=== PATIENT | female | born 1970 | race Caucasian/White ===

== ENCOUNTER 2018-04-09 20:34 | Inpatient (IN) | payer OTHER ==
[2018-04-09 22:32] LABS: ABNORMAL IP MESSAGE 1; HEMATOCRIT 19.6 % (37.0-47.0); MEAN CORPUSCULAR HEMOGLOBIN 17.4 pg (29.0-33.0); MEAN CORPUSCULAR HGB CONC 27.6 g/dl (32.0-37.0); MEAN PLATELET VOLUME 9.7 fl (7.4-10.4); PLATELET COUNT 367 10^3/UL (140-415); RED BLOOD COUNT 3.11 10^6/ul (4.20-5.40); RED CELL DISTRIBUTION WIDTH 19.7 % (11.5-14.5)
[2018-04-09 22:45] LABS: POSITIVE DIFF @See below
[2018-04-09 22:46] LABS: ADD MAN DIFF? YES; HEMOGLOBIN 5.4 g/dl (12.0-16.0)
[2018-04-09 22:47] LABS: INR 0.94; PROTIME 12.7 Sec (11.9-14.9)
[2018-04-09 22:48] LABS: PARTIAL THROMBOPLASTIN TIME 30.9 Sec (23.0-35.0)
[2018-04-09 22:51] LABS: ANION GAP 15 (5-13); BLOOD UREA NITROGEN 16 mg/dl (7-20); CALCIUM 9.2 mg/dl (8.4-10.2); CARBON DIOXIDE 21 mmol/L (21-31); CHLORIDE 103 mmol/L (97-110); CREATININE 0.83 mg/dl (0.44-1.00); Estimated GFR > 60 mL/min (>60); GLUCOSE 100 mg/dl (70-220); POTASSIUM 3.7 mmol/L (3.5-5.1); SODIUM 139 mmol/L (135-144)
[2018-04-09] MEDS ORDERED: ONDANSETRON 4 MG INJ IV ×2 (23:00)
[2018-04-09] MEDS ORDERED: NACL 0.9% 3 ML SYG IV (23:00)
[2018-04-09] MEDS ORDERED: ACETAMINOPHEN 325 MG TAB PO (23:00)
[2018-04-09] MEDS ORDERED: morphine 2 MG INJ IV (23:00)
[2018-04-09 23:03] LABS: ANISOCYTOSIS 3+ (0-0); BASOPHIL #M 0.1 10^3/ul (0.0-0.0); BASOPHILS % (M) 1 % (0-2); EOSINOPHILS % (M) 1 % (0-7); HYPOCHROMASIA 3+ (0-0); LYMPHOCYTES #M 2.7 10^3/ul (0.8-2.9); LYMPHOCYTES % (M) 27 % (15-51); MICROCYTOSIS 3+ (0-0); MONOCYTE #M 0.4 10^3/ul (0.3-0.9); MONOCYTES % (M) 4 % (0-11); OVALOCYTES 1+ (0-0); PLATELET ESTIMATE NORMAL; POIKILOCYTOSIS 2+ (0-0); POLYCHROMASIA 1+ (0-0); SEGMENTED NEUTROPHILS (M) % 67 % (39-77); SMUDGE%M 15 % (0-0); TEAR DROP CELLS 1+ (0-0)
[2018-04-09] MEDS: SOD CHLORIDE 0.9% 0 ML IV (23:08)
[2018-04-09 23:36] LABS: IMMEDIATE SPIN CROSSMATCH 1 2
[2018-04-10 08:24] LABS: ADD MAN DIFF? NO
[2018-04-10 08:35] LABS: WHITE BLOOD COUNT 6.2 10^3/ul (4.8-10.8)
[2018-04-10 08:35] LABS: ABNORMAL IP MESSAGE 1; BASOPHIL # 0.1 10^3/ul (0.0-0.1); BASOPHILS % 1.3 % (0.0-2.0); EOSINOPHILS # 0.1 10^3/ul (0.0-0.5); EOSINOPHILS % 1.9 % (0.0-7.0); HEMATOCRIT 27.7 % (37.0-47.0); HEMOGLOBIN 8.4 g/dl (12.0-16.0); LYMPHOCYTES # 1.7 10^3/ul (0.8-2.9); MEAN CORPUSCULAR HEMOGLOBIN 21.1 pg (29.0-33.0); MEAN CORPUSCULAR HGB CONC 30.3 g/dl (32.0-37.0); MEAN CORPUSCULAR VOLUME 69.6 fl (82.0-101.0); MONOCYTE # 0.4 10^3/ul (0.3-0.9); MONOCYTES % 6.1 % (0.0-11.0); NEUTROPHIL # 3.9 10^3/ul (1.6-7.5); NEUTROPHILS % 62.4 % (39.0-77.0); PLATELET COUNT 314 10^3/UL (140-415); RED BLOOD COUNT 3.98 10^6/ul (4.20-5.40); RED CELL DISTRIBUTION WIDTH 25.8 % (11.5-14.5)
[2018-04-10 08:36] LABS: POSITIVE DIFF @See below
[2018-04-10 08:53] LABS: ALANINE AMINOTRANSFERASE 20 IU/L (13-69); ALBUMIN 4.3 g/dl (3.3-4.9); ALBUMIN/GLOBULIN RATIO 1.13; ALKALINE PHOSPHATASE 52 IU/L (42-121); ANION GAP 15 (5-13); ASPARTATE AMINO TRANSFERASE 23 IU/L (15-46); BILIRUBIN,INDIRECT 0.4 mg/dl (0-1.1); BILIRUBIN,TOTAL 0.4 mg/dl (0.2-1.3); BLOOD UREA NITROGEN 10 mg/dl (7-20); CALCIUM 8.8 mg/dl (8.4-10.2); CARBON DIOXIDE 24 mmol/L (21-31); CHLORIDE 103 mmol/L (97-110); Estimated GFR > 60 mL/min (>60); GLUCOSE 83 mg/dl (70-220); POTASSIUM 3.6 mmol/L (3.5-5.1); SODIUM 142 mmol/L (135-144); TOTAL PROTEIN 8.1 g/dl (6.1-8.1)
[2018-04-10 08:54] LABS: HEMOGLOBIN A1C 5.6 % (0-5.9)
[2018-04-10] MEDS ORDERED: BISACODYL (EC) 5 MG TAB PO (14:00)
[2018-04-10] MEDS: DOCUSATE SODIUM 100 MG CAP PO ×2 (14:24→20:40)
[2018-04-10] MEDS: FERROUS SULFATE (EC) 325 MG TAB PO (20:40)
[2018-04-11 05:39] LABS: ADD MAN DIFF? NO
[2018-04-11 05:45] LABS: WHITE BLOOD COUNT 7.6 10^3/ul (4.8-10.8)
[2018-04-11 05:45] LABS: ABNORMAL IP MESSAGE 1; BASOPHIL # 0.1 10^3/ul (0.0-0.1); BASOPHILS % 1.1 % (0.0-2.0); EOSINOPHILS # 0.2 10^3/ul (0.0-0.5); HEMOGLOBIN 9.1 g/dl (12.0-16.0); LYMPHOCYTES # 2.7 10^3/ul (0.8-2.9); LYMPHOCYTES % 36.3 % (15.0-51.0); MEAN CORPUSCULAR HGB CONC 30.3 g/dl (32.0-37.0); MEAN CORPUSCULAR VOLUME 69.1 fl (82.0-101.0); MONOCYTE # 0.5 10^3/ul (0.3-0.9); MONOCYTES % 6.2 % (0.0-11.0); NEUTROPHILS % 53.1 % (39.0-77.0); PLATELET COUNT 322 10^3/UL (140-415); RED BLOOD COUNT 4.34 10^6/ul (4.20-5.40); RED CELL DISTRIBUTION WIDTH 25.5 % (11.5-14.5)
[2018-04-11 06:00] LABS: POSITIVE DIFF @See below
[2018-04-11 06:15] LABS: ANION GAP 17 (5-13); BLOOD UREA NITROGEN 10 mg/dl (7-20); CALCIUM 9.3 mg/dl (8.4-10.2); CARBON DIOXIDE 24 mmol/L (21-31); CHLORIDE 100 mmol/L (97-110); CREATININE 0.89 mg/dl (0.44-1.00); Estimated GFR > 60 mL/min (>60); GLUCOSE 87 mg/dl (70-220); POTASSIUM 3.8 mmol/L (3.5-5.1); SODIUM 141 mmol/L (135-144)
[2018-04-11 06:23] LABS: FREE T4 (FREE THYROXINE) 0.16 ng/dl (0.64-1.79)
[2018-04-11 06:25] LABS: FREE T3 0.92 pg/ml (2.77-5.27)
[2018-04-11] MEDS: DOCUSATE SODIUM 100 MG CAP PO ×2 (09:00→20:23)
[2018-04-11] MEDS: FERROUS SULFATE (EC) 325 MG TAB PO ×2 (09:00→20:23)
[2018-04-11] MEDS: LEVOTHYROXINE 100 MCG TAB PO (15:58)
[2018-04-12] MEDS: LEVOTHYROXINE 100 MCG TAB PO (05:42)
[2018-04-12] MEDS: FERROUS SULFATE (EC) 325 MG TAB PO (08:17)
[2018-04-12] MEDS: DOCUSATE SODIUM 100 MG CAP PO (08:17)
== END 2018-04-12 17:50 | disposition home or self-care (01) | DRG 812 ==
LOC: MS1 22:51 → E/R 20:34
PROVIDERS: Internal Medicine
PROC: 30233N1 Transfusion of Nonautologous Red Blood Cells into Peripheral Vein, Percutaneous Approach (ICD-10-PCS; principal; 2018-04-09)
DX: D50.0 Iron deficiency anemia secondary to blood loss (chronic) (principal); N92.0 Excessive and frequent menstruation with regular cycle; E03.9 Hypothyroidism, unspecified; D25.9 Leiomyoma of uterus, unspecified
CPT/HCPCS: 36415; 36430; 76856; 80048; 80053; 83036; 84439; 84443; 84481; 84703; 85025; 85610; 85730; 86644; 86850; 86900; 86901; 86920; 99285-25